=== PATIENT | female | born 1980 | race Hispanic/Latino ===

== ENCOUNTER → 2023-09-14 11:39 | Outpatient (REF) | payer OTHER, SELFPAY ==
[2023-09-14 13:16] LABS: ALT (SGPT) 24 U/L (0-35); AST (SGOT) 26 U/L (14-36); Albumin 4.9 g/dl (3.5-5.0); Alkaline Phosphatase 59 U/L (38-126); Blood Urea Nitrogen 11 mg/dl (7-17); Calcium 9.9 mg/dl (8.4-10.2); Carbon Dioxide 28 mmol/L (22-30); Chloride 100 mmol/L (98-107); Glucose 95 mg/dl (70-99); Potassium 4.3 mmol/L (3.5-5.1); Sodium 138 mmol/L (135-145); eGFR > 60.00
[2023-09-14 14:30] LABS: Glycohemoglobin (HgbA1c) 5.7 % (4.0-5.6)
== END ==
LOC: CLINIC 11:39
PROVIDERS: ATTENDING PHYSICIAN Nurse Practitioner Adult Health
DX: R73.03 Prediabetes (principal); R74.8 Abnormal levels of other serum enzymes
CPT/HCPCS: 36415; 80053; 83036

== ENCOUNTER → 2023-10-02 16:02 | Outpatient (REF) | payer OTHER, SELFPAY | LOC: CLINIC 16:02 | PROVIDERS: ATTENDING PHYSICIAN Nurse Practitioner Adult Health | DX: Z12.4 Encounter for screening for malignant neoplasm of cervix (principal) | CPT/HCPCS: 87624; G0123 ==

== ENCOUNTER → 2023-10-08 14:54 | Outpatient (REF) | payer OTHER, SELFPAY | LOC: WDC 14:54 | PROVIDERS: ATTENDING PHYSICIAN Nurse Practitioner Adult Health | DX: Z12.31 Encounter for screening mammogram for malignant neoplasm of breast (principal) | CPT/HCPCS: 77063; 77067 ==

== ENCOUNTER 2024-03-13 23:30 | Emergency (ER) | payer SELFPAY ==
[2024-03-13 23:33] VITALS: BP 131/79
[2024-03-14] LABS: % Basophils 0.4 % (0-2); % Eosinophils 5.3 % (0-6); % Immature Granulocytes 0.4 % (0-0.5); % Lymphocytes 18.1 % (20.5-51.1); % Monocytes 7.7 % (1.7-9.3); % Neutrophils 68.1 % (42.2-75.2); Absolute Basophils 0.1 10^3/uL (0-0.2); Absolute Eosinophils 0.7 10^3/uL (0-0.7); Absolute Immature Granulocytes 0.1 10^3/uL (0-0.05); Absolute Lymphocytes 2.4 10^3/uL (1.2-3.4); Absolute Neutrophils 8.8 10^3/uL (1.4-6.5); Hematocrit 35.9 % (37.0-47.0); Hemoglobin 12.3 g/dL (12.0-16.0); Mean Corp Hgb Conc. 34.3 g/dL (33.0-37.0); Mean Corpuscular Hgb 29.1 pg (27.0-31.0); Mean Corpuscular Volume 84.9 fL (81.0-99.0); Mean Platelet Volume 10.8 fL (7.4-10.4); Nucleated Red Blood Cells % 0 %; Platelet Count 259 10^3/uL (130-400); Red Blood Cell Count 4.23 10^6/uL (4.20-5.40); Red Cell Dist. Width 14.3 % (11.5-14.5); Urine Albumin 1+ (Neg - Trace); Urine Bilirubin Negative (Negative); Urine Character Slightly Cloudy (Clear); Urine Color Straw; Urine Glucose Negative (Negative); Urine Ketone Negative (Negative); Urine Leukocyte 2+ (Negative); Urine Nitrite Negative (Negative); Urine Occult Blood 4+ (Negative); Urine Urobilinogen Negative (Neg - 1+)
[2024-03-14 00:11] LABS: Lactic Acid 1.1 mmol/L (0.7-2.0)
[2024-03-14 00:12] LABS: Urine Amorphous Seen; Urine Bacteria Many (Negative); Urine Mucus Moderate; Urine Red Blood Cell >100 /HPF (0-2); Urine Squamous Cell >30 /LPF (Few); Urine White Cell >100 /HPF (0-5)
[2024-03-14 00:13] LABS: ALT (SGPT) 26 U/L (0-35); AST (SGOT) 21 U/L (14-36); Albumin 4.9 g/dl (3.5-5.0); Alkaline Phosphatase 58 U/L (38-126); Blood Urea Nitrogen 14 mg/dl (7-17); Calcium 9.6 mg/dl (8.4-10.2); Carbon Dioxide 26 mmol/L (22-30); Chloride 101 mmol/L (98-107); Glucose 111 mg/dl (70-99); Potassium 4.5 mmol/L (3.5-5.1); Sodium 142 mmol/L (135-145); Total Bilirubin 0.5 mg/dl (0.2-1.3); Total Protein 7.7 g/dl (6.3-8.2); eGFR > 60.00
[2024-03-14 00:43] VITALS: BP 104/54
[2024-03-14 01:00] VITALS: BP 100/50
[2024-03-14] MEDS: ROCEPHIN 2000 MG IV (01:38)
[2024-03-14] MEDS: TORADOL 30 MG IV (01:43)
[2024-03-14 02:00] VITALS: BP 91/50
[2024-03-14 02:09] LABS: HCG, Urine Qualitative Screen Negative
--- NOTE | 2024-03-14 02:30 | ED.GENMED ---
History of Present Illness
General
Chief Complaint: Flank Pain
Source: patient and family
Exam Limitations: none
Time Seen by Provider: 03/14/24 01:00
Nursing documentation reviewed up to this point in time: agreed with
History of Present Illness
History of Present Illness:
43-year-old female past medical history of UTI presenting to the emergency department today with concerns of a week of burning with urination today noticed some right-sided flank pain associated nausea denies any specific fevers. Denies specific
abdominal pain.
Past History
Past History
ED Past Medical History: None
ED Past Surgical History: None
Social History
Tobacco: Non-smoker
Alcohol: None
Drug: None
Review of Systems
Review of Systems
Allergies reviewed?: Yes
All Other Systems: ROS reviewed and negative except as documented in HPI and ROS
Phy Exam
Physical Exam
Physical Exam:
GENERAL: Alert , in no apparent distress
EYE: pupils equal and reactive
NECK: Supple, no significant adenopathy.
ENT: o/p clr, mmm.
CARDIAC: Regular rate and rhythm .
LUNGS: Clear breath sounds bilaterally, no acute respiratory distress, no wheezes/rales/rhonchi
ABDOMEN: Soft, without focal tenderness, no r/g, no cvat
NEUROLOGICAL: Alert and oriented, no focal neuro deficits
SKIN: Warm and dry, skin intact.
MUSCULOSKELETAL: No edema, well perfused.
PSYCH: Normal and appropriate interaction.
Sepsis
Sepsis Screening
Sepsis Assessment: Sepsis Ruled Out
Sepsis Screen
Sepsis Screen: Sepsis Ruled Out
Date: 03/14/24
Time: 18:13
Course
Orders/Labs/Results
Orders:
Orders
03/13/24 23:45
Complete Blood Count/With Diff Urgent
Comprehensive Metabolic Panel Urgent
HCG, Urine Qualitative Screen Urgent
Date Specimen was Collected: 03/13/24
Time Specimen was Collected: 23:38
Comment: ADD ON
Lactic Acid Urgent
Urinalysis Reflex To Culture Urgent
Date Specimen was Collected: 03/13/24
Time Specimen was Collected: 23:38
Urine Microscopic Reflex Cult Urgent
Urine Culture Urgent
MAGDALENA Source: U
Specimen Description:
Date Specimen was Collected: 03/13/24
Time Specimen was Collected: 23:38
03/14/24 01:21
CT Abd/pel Without Iv Or Oral Urgent
Comment:
Reason For Exam: right flank pain
CefTRIAXone [Rocephin] 2,000 mg IV NOW STA
Ketorolac [Toradol] 30 mg IV NOW STA
03/14/24 01:24
Sterile Water [Sterile Water For Injection] 20 ml .ROUTE .STK-MED
03/14/24 01:25
Add On- LAB Urgent
Tests Added?: serum hcg
03/14/24 01:26
Add On- LAB Urgent
Tests Added?: urine hcg
Abnormal Lab Results
03/13/24
23:45
WBC 13.0 H 10^3/uL
(4.8-10.8)
Hct 35.9 L %
(37.0-47.0)
MPV 10.8 H fL
(7.4-10.4)
Abs Immat Gran (auto) 0.1 H 10^3/uL
(0-0.05)
Absolute Neuts (auto) 8.8 H 10^3/uL
(1.4-6.5)
Absolute Monos (auto) 1.0 H 10^3/uL
(0.1-0.6)
Lymphocytes % 18.1 L %
(20.5-51.1)
Glucose 111 H mg/dl
(70-99)
Ur Occult Blood Reflex 4+ A
(Negative)
Leukocyte Esterase Rfl 2+ A
(Negative)
Urine RBC >100 A /HPF
(0-2)
Urine WBC (Reflex) >100 A /HPF
(0-5)
Urine Bacteria (Reflex) Many A
(Negative)
Urine Albumin (Reflex) 1+ A
(Neg - Trace)
03/13/24 23:45
03/13/24 23:45
Vital Signs
Initial and Last Documented VS:
Initial Vital Signs
Temp Pulse Resp BP Pulse Ox
99.9 F 78 20 131/79 100
03/13/24 23:33 03/13/24 23:33 03/13/24 23:33 03/13/24 23:33 03/13/24 23:33
Last Documented Vital Signs
Temp Pulse Resp BP Pulse Ox
99.9 F 71 16 97/53 98
03/13/24 23:33 03/14/24 03:06 03/14/24 03:06 03/14/24 03:06 03/14/24 03:06
MDM/Problems Addressed
MDM/Problems Addressed:
43-year-old female presenting to the emergency department today with concerns of ongoing dysuria over the past week now with right-sided flank pain. Feels similar to previous urinary tract infections. On arrival temperature of 99.9 but otherwise
vitals within normal no evidence of tachycardia white count of 13.0 lactic acid normal at 1.1 urinalysis does appear to be consistent with likely urinary tract infection. She was given dose of ceftriaxone as empiric antibiotic. Also given dose of
Toradol to help with discomfort. CT scan did not show emergent findings no significant formation to the kidneys or urinary tract. It did show possible diverticulitis though she does not have significant symptoms of this. She was advised to have a
liquid diet with progression of diet over the next few days. She was switched to Augmentin to cover the UTI but also potential coverage of potential diverticulitis if that is a possibility at this point. Otherwise given return precautions. Stable
for discharge.
*Critical Care Note
Total Time (30-74mins, 75-104mins- exclusive of procedures): Not Applicable
ED Attending Note
-
Portions of this chart may have been created with voice recognition software.� Occasional wrong word or��sound alike� substitutions may have occurred due to the inherent limitations of voice recognition software.
Discharge Plan
Departure
Patient Disposition: Home (Routine Discharge)
Date of Disposition: 03/14/24
Time of Disposition: 02:56
Patient with high blood pressure during this ER visit?: No
Condition: Good
Covid-19: Not Applicable
Discharge Problem:
Urinary tract infection, Diverticulitis
Instructions: Urinary Tract Infection, Adult ED
Prescriptions:
New
amoxicillin-pot clavulanate 875-125 mg tablet
1 tab PO BID 7 Days Qty: 14 0RF
Referrals:
PRIVATE,PHYSICIAN [Family Provider] -
Activity Restrictions/Additional Instructions:
You came to the emergency department today with concerns of urinary symptoms and flank pain. You are found to have a likely UTI. You are started on Augmentin. Please take this medication twice daily for the next 7 days. It also was found to have
possible diverticulitis on the CT scan. Please have a liquid diet over the next day or so and slowly progress her diet thereafter. Return to the emergency department for any worsening, new or concerning symptoms.
Interventions
Interventions:
*Risk Screen - Suicide Last Done: 03/13/24 23:33
*General Assessment Last Done: 03/14/24 00:45
*Neglect/Abuse Screening Last Done: 03/13/24 23:33
ED- Fall Risk Assessment Last Done: 03/14/24 00:45
*ED COVID-19 Vaccine History Last Done: 03/13/24 23:33
*Nursing Disposition Last Done: 03/14/24 03:09
AH-Fcopqy-Lswvcmpjyq Assessment Last Done: 03/14/24 00:45
ED-Female Genitourinary Assessment Last Done: 03/14/24 00:45
Discharge Date and Time
Discharge Date/Time: 03/14/24 03:10
Print Language: UPPER SORBIAN
[2024-03-14 03:06] VITALS: BP 97/53
== END 2024-03-14 03:10 | disposition home or self-care (01) ==
LOC: EMR 23:30
PROVIDERS: EMERGENCY PHYSICIAN Emergency Medicine
DX: N39.0 Urinary tract infection, site not specified (principal); K57.32 Diverticulitis of large intestine without perforation or abscess without bleeding
CPT/HCPCS: 96374; 96375; 99284; 74176; 80053; 81003; 81015; 81025; 83605; 85025; 87086

== ENCOUNTER → 2024-03-15 10:24 | Outpatient (REF) | payer OTHER, SELFPAY ==
[2024-03-15 11:52] LABS: ALT (SGPT) 21 U/L (0-35); AST (SGOT) 19 U/L (14-36); Albumin 4.7 g/dl (3.5-5.0); Alkaline Phosphatase 47 U/L (38-126); Blood Urea Nitrogen 10 mg/dl (7-17); Calcium 9.3 mg/dl (8.4-10.2); Carbon Dioxide 23 mmol/L (22-30); Chloride 105 mmol/L (98-107); Glucose 103 mg/dl (70-99); Potassium 4.5 mmol/L (3.5-5.1); Sodium 141 mmol/L (135-145); Total Bilirubin 0.6 mg/dl (0.2-1.3); Total Protein 7.3 g/dl (6.3-8.2); eGFR > 60.00
[2024-03-15 14:52] LABS: Glycohemoglobin (HgbA1c) 5.7 % (4.0-5.6)
== END ==
LOC: REG 10:24
PROVIDERS: ATTENDING PHYSICIAN Nurse Practitioner Adult Health
DX: R73.03 Prediabetes (principal); R74.8 Abnormal levels of other serum enzymes
CPT/HCPCS: 36415; 80053; 83036

== ENCOUNTER → 2024-09-17 07:01 | Outpatient (REF) | payer OTHER, SELFPAY ==
[2024-09-17 08:25] LABS: Hematocrit 36.3 % (37.0-47.0); Hemoglobin 12.2 g/dL (12.0-16.0); Mean Corp Hgb Conc. 33.6 g/dL (33.0-37.0); Mean Corpuscular Hgb 29.6 pg (27.0-31.0); Mean Corpuscular Volume 88.1 fL (81.0-99.0); Platelet Count 259 10^3/uL (130-400); Red Blood Cell Count 4.12 10^6/uL (4.20-5.40); Red Cell Dist. Width 14.2 % (11.5-14.5); White Blood Cell Count 7.5 10^3/uL (4.8-10.8)
[2024-09-17 09:01] LABS: ALT (SGPT) 18 U/L (0-35); AST (SGOT) 19 U/L (14-36); Albumin 4.9 g/dl (3.5-5.0); Alkaline Phosphatase 56 U/L (38-126); Blood Urea Nitrogen 15 mg/dl (7-17); Calcium 9.7 mg/dl (8.4-10.2); Carbon Dioxide 22 mmol/L (22-30); Chloride 107 mmol/L (98-107); Glucose 111 mg/dl (70-99); HDL Cholesterol 62 mg/dl; LDL Cholesterol, Calculated 106 mg/dl; Potassium 4.1 mmol/L (3.5-5.1); Sodium 141 mmol/L (135-145); Total Bilirubin 0.8 mg/dl (0.2-1.3); Total Cholesterol 186 mg/dl (50-199); Total Protein 7.6 g/dl (6.3-8.2); Triglyceride 93 mg/dl (10-149); Very Low Density Lipoprotein 18 mg/dl (0-30); eGFR > 60.00
[2024-09-17 09:58] LABS: Glycohemoglobin (HgbA1c) 5.7 % (4.0-5.6)
== END ==
LOC: CLINIC 07:01
PROVIDERS: ATTENDING PHYSICIAN Nurse Practitioner Adult Health
DX: R73.03 Prediabetes (principal)
CPT/HCPCS: 36415; 80053; 80061; 83036; 85027